=== PATIENT | male | born 1945 | race Caucasian/White ===

== ENCOUNTER 2018-11-05 11:46 | Emergency (ER) | payer BC ==
[2018-11-05 12:09] VITALS: BP 152/78
--- NOTE | 2018-11-05 12:35 | UC ---
UC General HPI - HPI Summary HPI Summary: Pt c/o intermittent right mid lateral rib pain that began "several months" ago. Pt is able to manage to pain at home with otc ibuprofen. Denies, trauma, weight loss, fever, chills. Is "between" PCP's. - History of Current Complaint Chief Complaint: UCGeneralIllness Stated Complaint: RIGHT RIB/ FLANK PAIN Time Seen by Provider: 11/05/18 12:01 Hx Obtained From: Patient Onset/Duration: Sudden Onset, Lasting Weeks Timing: Intermittent Episodes Lasting: - days Onset Severity: Moderate Current Severity: Mild Pain Intensity: 1 Associated Signs & Symptoms: Positive: Other - rib pain, muscle spasm - Allergy/Home Medications Allergies/Adverse Reactions: Allergies Allergy/AdvReac Type Severity Reaction Status Date / Time No Known Allergies Allergy Verified 11/05/18 12:03 Home Medications: Home Medications Blood Pressure Med 1 tab DAILY 11/05/18 [History Confirmed 11/05/18] Losartan TAB* [Cozaar TAB*] 1 tab PO DAILY 11/05/18 [History Confirmed 11/05/18] PMH/Surg Hx/FS Hx/Imm Hx Previously Healthy: Yes Endocrine History: Dyslipidemia Cardiovascular History: Hypertension - Surgical History Surgical History: None - Family History Known Family History: Positive: Cardiac Disease - Social History Occupation: Employed Full-time Lives: With Family Alcohol Use: Daily Alcohol Amount: 2 beers/day Substance Use Type: None Smoking Status (MU): Former Smoker Have You Smoked in the Last Year: No When Did the Patient Quit Smoking/Using Tobacco: 2014 Review of Systems All Other Systems Reviewed And Are Negative: Yes Constitutional: Positive: Negative Skin: Positive: Negative Eyes: Positive: Negative ENT: Positive: Negative Respiratory: Positive: Negative Cardiovascular: Positive: Negative Gastrointestinal: Positive: Negative Genitourinary: Positive: Negative Motor: Positive: Negative Neurovascular: Positive: Negative Musculoskeletal: Positive: Arthralgia, Myalgia Neurological: Positive: Negative Psychological: Positive: Negative Is Patient Immunocompromised?: No Physical Exam Triage Information Reviewed: Yes Appearance: Well-Appearing Vital Signs: Initial Vital Signs Temp 98.2 F 11/05/18 12:05 Pulse 84 11/05/18 12:05 Resp 16 11/05/18 12:05 BP 152/78 11/05/18 12:05 Pulse Ox 97 11/05/18 12:05 Vital Signs Reviewed: Yes Eye Exam: Normal ENT Exam: Normal Neck exam: Normal Respiratory Exam: Normal Respiratory: Positive: Lungs clear, Normal breath sounds Musculoskeletal Exam: Normal Neurological Exam: Normal Psychological Exam: Normal Skin Exam: Normal Diagnostics - Radiology No standard instances Radiology Interpretation Completed By: Radiologist - IMPRESSION: MINIMALLY DISPLACED FRACTURES OF THE RIGHT SEVENTH, EIGHTH, AND NINTH RIBS WITHOUT APPRECIABLE PNEUMOTHORAX. THERE IS A TRACE RIGHT PLEURAL EFFUSION. COPD. Course/Dx - Differential Dx - Multi-Symptom Differential Diagnoses: Other - rib fracture - Diagnoses Provider Diagnosis: Fracture of rib of right side Discharge - Sign-Out/Discharge Documenting (check all that apply): Patient Departure All imaging exams completed and their final reports reviewed: Yes - Discharge Plan Condition: Stable Disposition: HOME Prescriptions: predniSONE TAB* [Deltasone 20 MG TAB*] 20 mg PO DAILY #4 tab Patient Education Materials: Rib Fracture (ED) Forms: *Work Release Referrals: [facility] [place] [facility] [Outside] - As Soon As Possible Jose Alejandro Dasilva MD [Medical Doctor] - No Primary Care Phys,NOPCP [Primary Care Provider] - - Billing Disposition and Condition Condition: STABLE Disposition: Home
== END 2018-11-05 13:12 | disposition home or self-care (01) ==
LOC: UCCORT 11:46
DX: S22.41XA Multiple fractures of ribs, right side, initial encounter for closed fracture (principal); I10 Essential (primary) hypertension; Z87.891 Personal history of nicotine dependence; X58.XXXA Exposure to other specified factors, initial encounter; Y92.9 Unspecified place or not applicable
CPT/HCPCS: 99202; G0463